=== PATIENT | male | born 1995 | race Caucasian/White ===

== ENCOUNTER 2017-04-17 20:46 | Emergency (ER) | payer BC ==
[~2017-04-17] VITALS: Ht 179.1 cm; Wt 76.1 kg
[2017-04-17 20:51] VITALS: Ht 179.1 cm; Wt 76.1 kg
[2017-04-17] MEDS ORDERED: KETOROLAC TROMETHAMINE 30 MG/ML VIAL IV STA (22:22)
[2017-04-17] MEDS ORDERED: ACETAMINOPHEN IV 100 ML IV ONE (22:30)
[2017-04-17] MEDS ORDERED: SODIUM CHLORIDE 0.9% 1000ML 1,000 ML IV ONE (22:30)
[2017-04-17 22:56] LABS: BASO % 0.1 %; BASO ABS # 0.01 K/uL (0-0.2); COMPLETE YES; EOS % 0.1 %; HEMATOCRIT 40.9 % (42-52); IG% 0.3 %; LYMPH % 12.3 %; LYMPH ABS # 1.42 K/uL (1.2-3.4); MEAN CELL VOLUME 84.3 fL (80-100); MEAN CORPUSCULAR HEMOGLOBIN 28.7 pg (25-34); MEAN PLATELET VOLUME 9.2 fL (7.4-10.4); NEUT % 76.2 %; PLATELET COUNT 302 K/uL (130-400); RED BLOOD COUNT 4.85 M/uL (4.7-6.1); WHITE BLOOD COUNT 11.54 K/uL (4.8-10.8)
[2017-04-17 23:01] LABS: URINE APPEARANCE CLEAR (CLEAR); URINE BILIRUBIN NEG (NEG); URINE COLOR YELLOW; URINE NITRITE NEG (NEG); UROBILINOGEN NEG (NEG); ZZUR CULT IF INDIC CLEAN CATCH NO
[2017-04-17 23:03] LABS: MANUAL MICROSCOPIC REQUIRED? NO; REVIEW REQ? NO
[2017-04-17 23:15] LABS: BUN/CREATININE RATIO 8.5 (10-20); CALCIUM 9.2 mg/dl (8.5-10.1); CREATININE 0.93 mg/dl (0.60-1.40); POTASSIUM 3.7 mmol/L (3.5-5.1)
[2017-04-17 23:33] VITALS: BP 127/63; PULSE 67; TEMP 36.8; O2SAT 96
--- NOTE | 2017-04-18 21:11 | EMERGENCY ROOM VISIT NOTE ---
History First contact with patient: 21:39 Chief Complaint: FEVER Stated Complaint: HEADACHE,SWOLLEN THROAT,ACHEY,FEVER,STOMACH PAIN History of Present Illness The patient is a 21 year old male who presents to the Emergency Room with complaints of fever and sore throat for the past 3-4 days. The patient has been using [id number] DayQuil which has helped his fever. He states that he is usually healthy, but has been overworked at the end of the semester, and feels like maybe wearing himself down. The patient has been able to eat and drink as normal. No chest pain, chest tightness, shortness of breath, or abdominal pain. He rates his current discomfort a 6/10. Review of Systems More than 10 systems were reviewed and otherwise negative with the exception of history of present illness. Past Medical/Surgical History No chronic medical disease Family History No pertinent family history Social History Smoking Status: Never Smoker Current/Historical Medications No Active Prescriptions or Reported Meds Physical Exam Vital Signs Date Time Temp Pulse Resp B/P (MAP) Pulse Ox O2 Delivery O2 Flow Rate FiO2 04/17/17 23:33 36.8 67 18 127/63 96 Room Air 04/17/17 22:47 90 18 133/74 96 Room Air 04/17/17 20:51 38.3 99 18 117/70 95 Room Air Physical Exam VITALS: Vitals are noted on the nurse's note and reviewed by myself. Vital signs with fever. GENERAL: Well-developed, well-nourished, white male, who appears ill but nontoxic. HEAD: Normocephalic atraumatic. EARS: External ear normal. External auditory canals clear, tympanic membranes pearly bah without erythema or effusion bilaterally. EYES: Pupils equal round and reactive to light and accommodation. Conjunctivae without injection, sclerae without icterus. Extraocular movements intact. NOSE: Patent, turbinates without inflammation or discharge. MOUTH: Mucous membranes moist. Tonsils are not enlarged. Pharynx without erythema, blood, or exudate. Uvula midline. Airway patent. NECK: Supple without nuchal rigidity. No lymphadenopathy. No thyromegaly. Cervical spine is nontender. HEART: Regular rate and rhythm without murmurs gallops or rubs. LUNGS: Clear to auscultation bilaterally without wheezes, rales or rhonchi. No retractions or accessory muscle use. ABDOMEN: Positive normal bowel sounds x 4. Soft, nontender, without masses or organomegaly. No guarding or rebound tenderness. MUSCULOSKELETAL: No muscle atrophy, erythema, or edema noted. Full range of motion without joint tenderness in all extremities. Medical Decision & Procedures Laboratory Results 04/17/17 22:40 Red Blood Count 4.85, Mean Corpuscular Volume 84.3, Mean Corpuscular Hemoglobin 28.7, Mean Corpuscular Hemoglobin Concent 34.0, Mean Platelet Volume 9.2, Neutrophils (%) (Auto) 76.2, Lymphocytes (%) (Auto) 12.3, Monocytes (%) (Auto) 11.0, Eosinophils (%) (Auto) 0.1, Basophils (%) (Auto) 0.1, Neutrophils # (Auto ) 8.79, Lymphocytes # (Auto) 1.42, Monocytes # (Auto) 1.27, Eosinophils # (Auto ) 0.01, Basophils # (Auto) 0.01 04/17/17 22:40 Test 04/17/17 22:40 04/17/17 22:49 White Blood Count 11.54 K/uL (4.8-10.8) Red Blood Count 4.85 M/uL (4.7-6.1) Hemoglobin 13.9 g/dL (14.0-18.0) Hematocrit 40.9 % (42-52) Mean Corpuscular Volume 84.3 fL (80-100) Mean Corpuscular Hemoglobin 28.7 pg (25-34) Mean Corpuscular Hemoglobin Concent 34.0 g/dl (32-36) Platelet Count 302 K/uL (130-400) Mean Platelet Volume 9.2 fL (7.4-10.4) Neutrophils (%) (Auto) 76.2 % Lymphocytes (%) (Auto) 12.3 % Monocytes (%) (Auto) 11.0 % Eosinophils (%) (Auto) 0.1 % Basophils (%) (Auto) 0.1 % Neutrophils # (Auto) 8.79 K/uL (1.4-6.5) Lymphocytes # (Auto) 1.42 K/uL (1.2-3.4) Monocytes # (Auto) 1.27 K/uL (0.11-0.59) Eosinophils # (Auto) 0.01 K/uL (0-0.5) Basophils # (Auto) 0.01 K/uL (0-0.2) RDW Standard Deviation 41.5 fL (36.4-46.3) RDW Coefficient of Variation 13.4 % (11.5-14.5) Immature Granulocyte % (Auto) 0.3 % Immature Granulocyte # (Auto) 0.04 K/uL (0.00-0.02) Anion Gap 6.0 mmol/L (3-11) Est Creatinine Clear Calc Drug Dose 131.8 ml/min Estimated GFR () 135.5 Estimated GFR (Non- 116.9 BUN/Creatinine Ratio 8.5 (10-20) Calcium Level 9.2 mg/dl (8.5-10.1) Total Bilirubin 0.3 mg/dl (0.2-1) Aspartate Amino Transf (AST/SGOT) 14 U/L (15-37) Alanine Aminotransferase (ALT/SGPT) 18 U/L (12-78) Alkaline Phosphatase 77 U/L (45-117) Total Protein 7.9 gm/dl (6.4-8.2) Albumin 3.9 gm/dl (3.4-5.0) Globulin 4.0 gm/dl (2.5-4.0) Albumin/Globulin Ratio 1.0 (0.9-2) Lipase 95 U/L (73-393) Monoscreen NEG (NEG) Urine Color YELLOW Urine Appearance CLEAR (CLEAR) Urine pH 6.0 (4.5-7.5) Urine Specific [place] 1.010 (1.000-1.030) Urine Protein NEG (NEG) Urine Glucose (UA) NEG (NEG) Urine Ketones NEG (NEG) Urine Occult Blood NEG (NEG) Urine Nitrite NEG (NEG) Urine Bilirubin NEG (NEG) Urine Urobilinogen NEG (NEG) Urine Leukocyte Esterase NEG (NEG) Medications Administered Medications (Trade) Dose Ordered Sig/Gary Route Start Time Stop Time Status Last Admin Dose Admin Acetaminophen 100 ml @ 400 mls/hr NOW ONCE IV 04/17/17 22:30 04/17/17 22:44 DC 04/17/17 22:45 400 MLS/HR Ketorolac Tromethamine (Toradol Inj) 30 mg NOW STAT IV 04/17/17 22:22 04/17/17 22:23 DC 04/17/17 22:44 30 MG Sodium Chloride 1,000 ml @ 999 mls/hr Q1H1M ONCE IV 04/17/17 22:30 04/17/17 23:30 DC 04/17/17 22:44 999 MLS/HR ED Course Physical exam and history were performed. Nursing notes, EMR, and Medication List were personally reviewed. Patient appears to have fever and sore throat symptoms for the past 3 or 4 days. Rapid strep was performed and was negative. IV access was established and labs were obtained. The patient was hydrated and medicated as above. The patient's blood work is as above and was reviewed. He does not have a significant elevated white blood cell count, gross anemia, bandemia, or significant electrolyte imbalance. His Monospot is negative. Remaining labs are fairly nondiagnostic. Overall the patient appears well for discharge home. His symptoms are likely viral in nature. He is outside of the window for Tamiflu and influenza testing was not performed. He will need to continue conservative care and was asked to follow with [facility] with any ongoing or persistent symptoms. The chart was completed utilizing [employer] Speech Voice Recognition Software. Grammatical errors, random word insertions, pronoun errors, and incomplete sentences are an occasional consequence of this system due to software limitations, ambient noise, and hardware issues. Any formal questions or concerns about the content, text, or information contained within the body of this dictation should be directly addressed to the provider for clarification. . Medical Decision Differential diagnosis: Etiologies such as viral syndrome, otitis, pharyngitis, pneumonia, influenza, meningitis, urinary tract infection, sepsis, bacteremia, as well as others were entertained. Impression Primary Impression: Influenza-like symptoms Departure Information Dispostion Home / Self-Care Condition GOOD Prescriptions No Active Prescriptions or Reported Meds Referrals [facility] (PCP) Forms HOME CARE DOCUMENTATION FORM, IMPORTANT VISIT INFORMATION Patient Instructions My [facility] Additional Instructions You were seen and evaluated today on an emergency basis only. This is not a substitute for, or an effort to provide, complete comprehensive medical care. It is not possible to recognize and treat all injuries or illnesses in a single emergency department visit. For this reason it is recommended that you followup with [facility] this week with any ongoing or persistent symptoms. For baseline pain relief you may alternate ibuprofen and acetaminophen every 4 hours for pain control. Take 600 mg ibuprofen (Advil) and then 4 hours later take 1000 mg acetaminophen (Tylenol). Do not take more than 3000 mg acetaminophen in a single day. Drink plenty of fluids and remain well hydrated You are welcome to return to the emergency department anytime with new, worsening, or concerning symptoms.
== END 2017-04-17 23:50 | disposition home or self-care (01) ==
LOC: C.EDB 20:48
DX: J11.1 Influenza due to unidentified influenza virus with other respiratory manifestations (principal)

== ENCOUNTER 2017-04-19 13:57 | Emergency (ER) | payer BC ==
[~2017-04-19] VITALS: Ht 177.8 cm; Wt 75.0 kg
[2017-04-19 14:07] VITALS: TEMP 39.3; Ht 177.8 cm; Wt 75.0 kg
[2017-04-19] MEDS ORDERED: ACETAMINOPHEN 500 MG TAB PO STA (14:30)
[2017-04-19] MEDS ORDERED: SODIUM CHLORIDE 0.9% 1000ML 1,000 ML IV ONE (14:30)
[2017-04-19] MEDS ORDERED: KETOROLAC TROMETHAMINE 30 MG/ML VIAL IV STA (14:30)
[2017-04-19] MEDS ORDERED: GI COCKTAIL PO STA (15:04)
[2017-04-19] MEDS ORDERED: ALUMINUM/MAGNESIUM SUSP 30 ML UDC ONE (15:09)
[2017-04-19 15:10] LABS: BASO % 0.1 %; BASO ABS # 0.01 K/uL (0-0.2); COMPLETE YES; EOS % 0.4 %; HEMATOCRIT 39.4 % (42-52); IG% 0.2 %; LYMPH % 13.5 %; MEAN CELL VOLUME 85.1 fL (80-100); MEAN CORPUSCULAR HEMOGLOBIN 29.4 pg (25-34); MEAN CORPUSCULAR HGB CONC 34.5 g/dl (32-36); MEAN PLATELET VOLUME 9.3 fL (7.4-10.4); MONO % 11.2 %; NEUT % 74.6 %; PLATELET COUNT 292 K/uL (130-400); RED BLOOD COUNT 4.63 M/uL (4.7-6.1); WHITE BLOOD COUNT 11.11 K/uL (4.8-10.8)
[2017-04-19] MEDS ORDERED: LIDOCAINE HCL 2% VISC SOLN 20 ML UDC ONE (15:10)
--- NOTE | 2017-04-19 15:10 | EMERGENCY ROOM VISIT NOTE ---
History First contact with patient: 14:16 Chief Complaint: ILLNESS Stated Complaint: FEVER,COUGH,HEADACHE,DEHYDRATION,NASUEA History of Present Illness The patient is a 21 year old male who presents to the Emergency Room with complaints of flulike symptoms have been going on for approximately 5 days. The patient reports a fever. He did not take his temperature at home. He is also had a headache, muscle aches and body aches. He has been trying to medicate with ibuprofen and DayQuil with minimal relief. His symptoms initially started out as a sore throat. The throat has gotten somewhat better. He now complains of a nonproductive cough. He denies any shortness of breath. He is having some pain in the center of his chest associated with coughing. The patient also complains of upper abdominal pain. He tried Pepcid this morning, which did help the pain. He denies any vomiting. No changes in bowel movements. Review of Systems 10 system review performed and negative unless noted in HPI or below Past Medical/Surgical History Otherwise healthy Social History Smoking Status: Never Smoker Alcohol Use: occasionally Occupation Status: [employer] student Current/Historical Medications Scheduled Pantoprazole (Protonix), 40 MG PO DAILY Physical Exam Vital Signs Date Time Temp Pulse Resp B/P (MAP) Pulse Ox O2 Delivery O2 Flow Rate FiO2 04/19/17 17:38 92 19 122/72 95 04/19/17 16:11 92 19 122/72 95 Room Air 04/19/17 15:00 113 04/19/17 14:56 108 30 139/79 99 Room Air 04/19/17 14:07 39.3 108 20 135/71 97 Room Air Physical Exam VITALS: Vitals are noted on the nurse's note and reviewed by myself. Vital signs stable. GENERAL: 21-year-old male, mildly ill in appearance SKIN: The skin was without rashes, erythema, edema, or bruising. HEAD: Normocephalic atraumatic. EARS: External auditory canals clear, tympanic membranes are slightly erythematous left greater than right. The left tympanic membrane is bulging. No effusion noted bilaterally. EYES: Pupils equal round and reactive to light and accommodation. Conjunctivae without injection, sclerae without icterus. Extraocular movements intact. MOUTH: Mucous membranes moist. Tonsils are slightly enlarged with white exudate on the left tonsil. No involvement of the soft palate. Uvula midline. Airway patent. Tongue does not deviate. NECK: Supple without nuchal rigidity. Lymphadenopathy noted in the anterior cervical chain right greater than left. Cervical spine is nontender. No JVD. HEART: Tachycardic, regular rhythm without murmurs gallops or rubs. LUNGS: Coarse breath sounds bilaterally. No crackles at the bases. No wheezing. No tachypnea. ABDOMEN: Positive bowel sounds x 4.Soft, mild tenderness to palpation in the left upper quadrant, without organomegaly. No guarding or rebound tenderness. MUSCULOSKELETAL: No muscle atrophy, erythema, or edema noted. Strength 5/5 throughout. NEURO: Patient was alert and oriented to person place and time. Normal sensation to touch. No focal neurological deficits. Medical Decision & Procedures ER Provider Diagnostic Interpretation: chest x-ray 2 views Patient Name: VICKIE GUILLEN Unit Number: [id number] Dictated: [id number] Transcribed: 04/19/17 1534 MS Printed Date/Time: [~ rep prt dt]/[~ rep prt tm] [~ rep ct labl] - [~ rep ct ivnm] [facility] Radiology Department [place], [place] [id number] Dictated: [id number] Transcribed: 04/19/17 1534 MS Printed Date/Time: [~ rep prt dt]/[~ rep prt tm] [~ rep ct labl] - [~ rep ct ivnm] IMPRESSION: Negative chest. The above report was generated using voice recognition software. It may contain grammatical, syntax or spelling errors. Electronically signed by: Austen Clifton M.D. 04/19/2017 3:34 PM Dictated Date/Time: 04/19/2017 3:34 PM The status of this report is Signed. Draft = Not yet reviewed or approved by Radiologist. Signed = Reviewed and approved by Radiologist. <AttendingPhy></AttendingPhy> <FamilyPhy>[facility]</FamilyPhy> <PrimaryPhy>[facility]</PrimaryPhy> <UnitNumber>[id number]</ UnitNumber> <VisitNumber>[id number]</VisitNumber> <PatientName>ABBI GUILLENEW Hattie</PatientName> <DateOfBirth>1995</DateOfBirth> <Location>[facility]</Location > <ServiceDate>04/19/17</ServiceDate> <MNE>ESINDI</MNE> <OrderingPhy>Jing Connor PA-C</OrderingPhy> <OrderingPhyMNE>f rep ord dr schwartz</OrderingPhyMNE> < DictatingPhyMNE>f rep dict dr schwartz</DictatingPhyMNE> <CCListMNE>f rep ct mne</ CCListMNE> <AdmittingPhyMNE>f pt admit dr schwartz</AdmittingPhyMNE> <AttendingPhyMNE >f pt attend dr schwartz</AttendingPhyMNE> <ConsultingPhyMNE>f pt consult dr schwartz</ConsultingPhyMNE> <FamilyPhyMNE>f pt fam dr schwartz</FamilyPhyMNE> <OtherPhyMNE>f pt other dr schwartz</OtherPhyMNE> < PrimaryPhyMNE>f pt prim care dr schwartz</PrimaryPhyMNE> <ReferringPhyMNE>f pt referring dr schwartz</ReferringPhyMNE> Laboratory Results 04/19/17 14:43 Red Blood Count 4.63, Mean Corpuscular Volume 85.1, Mean Corpuscular Hemoglobin 29.4, Mean Corpuscular Hemoglobin Concent 34.5, Mean Platelet Volume 9.3, Neutrophils (%) (Auto) 74.6, Lymphocytes (%) (Auto) 13.5, Monocytes (%) (Auto) 11.2, Eosinophils (%) (Auto) 0.4, Basophils (%) (Auto) 0.1, Neutrophils # (Auto ) 8.30, Lymphocytes # (Auto) 1.50, Monocytes # (Auto) 1.24, Eosinophils # (Auto ) 0.04, Basophils # (Auto) 0.01 04/19/17 14:43 Test 04/19/17 14:43 04/19/17 15:19 White Blood Count 11.11 K/uL (4.8-10.8) Red Blood Count 4.63 M/uL (4.7-6.1) Hemoglobin 13.6 g/dL (14.0-18.0) Hematocrit 39.4 % (42-52) Mean Corpuscular Volume 85.1 fL (80-100) Mean Corpuscular Hemoglobin 29.4 pg (25-34) Mean Corpuscular Hemoglobin Concent 34.5 g/dl (32-36) Platelet Count 292 K/uL (130-400) Mean Platelet Volume 9.3 fL (7.4-10.4) Neutrophils (%) (Auto) 74.6 % Lymphocytes (%) (Auto) 13.5 % Monocytes (%) (Auto) 11.2 % Eosinophils (%) (Auto) 0.4 % Basophils (%) (Auto) 0.1 % Neutrophils # (Auto) 8.30 K/uL (1.4-6.5) Lymphocytes # (Auto) 1.50 K/uL (1.2-3.4) Monocytes # (Auto) 1.24 K/uL (0.11-0.59) Eosinophils # (Auto) 0.04 K/uL (0-0.5) Basophils # (Auto) 0.01 K/uL (0-0.2) RDW Standard Deviation 42.0 fL (36.4-46.3) RDW Coefficient of Variation 13.5 % (11.5-14.5) Immature Granulocyte % (Auto) 0.2 % Immature Granulocyte # (Auto) 0.02 K/uL (0.00-0.02) Anion Gap 2.0 mmol/L (3-11) Est Creatinine Clear Calc Drug Dose 117.1 ml/min Estimated GFR () 119.8 Estimated GFR (Non- 103.4 BUN/Creatinine Ratio 5.7 (10-20) Calcium Level 9.1 mg/dl (8.5-10.1) Total Bilirubin 0.4 mg/dl (0.2-1) Aspartate Amino Transf (AST/SGOT) 29 U/L (15-37) Alanine Aminotransferase (ALT/SGPT) 25 U/L (12-78) Alkaline Phosphatase 79 U/L (45-117) Total Protein 8.3 gm/dl (6.4-8.2) Albumin 3.9 gm/dl (3.4-5.0) Globulin 4.4 gm/dl (2.5-4.0) Albumin/Globulin Ratio 0.9 (0.9-2) Lipase 110 U/L (73-393) Lyme Disease IgG Antibody NEG (NEG) Lyme Disease IgM Antibody NEG (NEG) Monoscreen NEG (NEG) Urine Color YELLOW Urine Appearance CLEAR (CLEAR) Urine pH 8.5 (4.5-7.5) Urine Specific [place] 1.006 (1.000-1.030) Urine Protein NEG (NEG) Urine Glucose (UA) NEG (NEG) Urine Ketones NEG (NEG) Urine Occult Blood NEG (NEG) Urine Nitrite NEG (NEG) Urine Bilirubin NEG (NEG) Urine Urobilinogen NEG (NEG) Urine Leukocyte Esterase NEG (NEG) Influenza Type A (RT-PCR) Neg for Influ A (NEG) Influenza Type B (RT-PCR) Neg for Influ B (NEG) Medications Administered Medications (Trade) Dose Ordered Sig/Gary Route Start Time Stop Time Status Last Admin Dose Admin Acetaminophen (Tylenol Tab) 1,000 mg NOW STAT PO 04/19/17 14:30 04/19/17 14:33 DC 04/19/17 14:30 1,000 MG Ketorolac Tromethamine (Toradol Inj) 30 mg NOW STAT IV 04/19/17 14:30 04/19/17 14:33 DC 04/19/17 14:30 30 MG Sodium Chloride 1,000 ml @ 999 mls/hr Q1H1M ONCE IV 04/19/17 14:30 04/19/17 15:30 DC 04/19/17 14:54 999 MLS/HR Ondansetron HCl (Zofran Inj) 4 mg Q2H PRN IV 04/19/17 15:15 04/19/17 18:02 DC 04/19/17 17:02 4 MG Al Hydroxide/Mg Hydroxide (Maalox Susp) 30 ml STK-MED ONCE .ROUTE 04/19/17 15:09 04/19/17 15:10 DC 04/19/17 15:17 30 ML Lidocaine HCl (Viscous Lidocaine 2% Soln) 20 ml STK-MED ONCE .ROUTE 04/19/17 15:10 04/19/17 15:11 DC 04/19/17 15:18 20 ML Pantoprazole Sodium (Protonix Tab) 40 mg NOW STAT PO 04/19/17 16:43 04/19/17 16:44 DC 04/19/17 17:02 40 MG Ondansetron HCl (ZOFRAN ODT 4MG Home Pack) 1 homepack Check I'm HereK-MED ONCE .ROUTE 04/19/17 17:27 04/19/17 17:28 DC 04/19/17 17:30 1 [facility] ED Course Patient was seen and examined Vital signs including blood pressure were reviewed medications list was verified with patient Labs were obtained, and a saline lock was established The patient was medicated with Toradol, Tylenol and Zofran. He was hydrated with normal saline. He was also given a GI cocktail. Upon reevaluation, the patient was feeling better. We discussed the results of his workup. I also spoke with the patient's mother over the phone. She voiced understanding , and seemed happy with the workup The case was also discussed with my supervising physician The patient was given 1 dose of pantoprazole prior to discharge. He was also given a home pack of Zofran. I reviewed discharge instructions the patient. They voiced understanding and had no further questions. Medical Decision Differential diagnosis: Bronchitis, pneumonia, strep pharyngitis, viral pharyngitis, influenza, other viral syndrome, mononucleosis, meningitis, gastritis, duodenal ulcer, pancreatitis, pulmonary embolus, cholecystitis This patient is a 21-year-old male that returns to the emergency department with complaints of continued fever, and now cough and epigastric abdominal pain. On exam, he did appear ill with a fever. He had coarse breath sounds. He did not have any signs of nuchal rigidity on exam. I did not suspect meningitis. His past workup was reviewed from 2 days ago. I repeated blood work. His mono screen is negative. There is mild leukocytosis at 11,000, which is essentially unchanged. His strep test was reviewed, and negative. Chest x-ray did not show any signs of pneumonia. Because of the epigastric pain , I ordered a lipase and liver functions. No abnormalities were noted. His pain is possibly due to gastritis as Pepcid seemed to help earlier today. He also had some relief with a GI cocktail. The patient has been taking ibuprofen for symptoms, which could complaint is epigastric pain. He was given a prescription for pantoprazole. The patient has a follow-up appointment scheduled with his primary care physician in 2 days. I believe that he is stable to be discharged as long as he follows up as scheduled. He was instructed to increase his fluids and take Tylenol for fever. He will avoid ibuprofen if possible. He agrees to return to the emergency department immediately with any new, worsening or concerning symptoms. This chart was completed in part utilizing [employer] Voice Recognition software. Attempts were made to minimize the grammatical errors, random word insertions, pronoun errors and incomplete sentences. Any formal questions or concerns about the content, text or information contained within the body of this dictation should be directly addressed to the provider for clarification. Impression Primary Impression: Influenza-like symptoms Additional Impression: Gastritis Departure Information Dispostion Home / Self-Care Condition FAIR Prescriptions Pantoprazole (PROTONIX) 40 Mg Tab 40 MG PO DAILY, #14 TAB Prov: Jing Connor PA-C 04/19/17 Referrals [facility] (PCP) Patient Instructions My [facility] Additional Instructions You were evaluated in the emergency department for fever, headache and stomach problems. This is unfortunately likely a viral illness, and will need to run its course. It is very important to stay well hydrated. I would follow a bland diet eating small amounts more frequently. Foods that are acidic, spicy, caffeine, tobacco and alcohol should be avoided Please also avoid ibuprofen if possible Tylenol 1000 mg every 8 hours as needed for fever, headache or pain. Do not exceed 3000 mg in a 24-hour period Please follow-up with your primary care physician in 2 days as scheduled Please do not hesitate to return to the emergency department with any new, worsening or concerning symptoms; especially, increased fever, pain, vomiting or severe headache Problem Qualifiers
[2017-04-19] MEDS ORDERED: ONDANSETRON INJ 2 MG/ML 2 ML VIAL IV PRN (15:15)
[2017-04-19 15:30] LABS: BUN/CREATININE RATIO 5.7 (10-20); CALCIUM 9.1 mg/dl (8.5-10.1); CREATININE 1.03 mg/dl (0.60-1.40); POTASSIUM 3.8 mmol/L (3.5-5.1)
[2017-04-19 15:32] LABS: ALB/GLOB RATIO 0.9 (0.9-2)
[2017-04-19 15:34] LABS: MANUAL MICROSCOPIC REQUIRED? NO; REVIEW REQ? NO; URINE APPEARANCE CLEAR (CLEAR); URINE BILIRUBIN NEG (NEG); URINE COLOR YELLOW; URINE NITRITE NEG (NEG); URINE PH 8.5 (4.5-7.5); URINE SPECIFIC GRAVITY 1.006 (1.000-1.030); UROBILINOGEN NEG (NEG)
--- NOTE | 2017-04-19 15:35 | DIAGNOSTIC IMAGING REPORT ---
CHEST 2 VIEWS ROUTINE CLINICAL HISTORY: cough fever dyspnea COMPARISON STUDY: No previous studies for comparison. FINDINGS: The bones soft tissues and hemidiaphragms are normal. The cardiomediastinal silhouette is normal. The lungs are clear. The pulmonary vasculature is normal. IMPRESSION: Negative chest. The above report was generated using voice recognition software. It may contain grammatical, syntax or spelling errors. Electronically signed by: Austen Clifton M.D. 04/19/2017 3:34 PM Dictated Date/Time: 04/19/2017 3:34 PM
[2017-04-19 15:59] LABS: LYME DISEASE AB IGG NEG (NEG); LYME DISEASE AB IGM NEG (NEG)
[2017-04-19 16:17] LABS: INFLUENZA A PCR Neg for Influ A (NEG); INFLUENZA B PCR Neg for Influ B (NEG)
[2017-04-19] MEDS ORDERED: PANTOprazole SOD 40 MG TAB PO STA (16:43)
[2017-04-19] MEDS ORDERED: ONDANSETRON HOME PACK 4MG OD TAB ONE (17:27)
[2017-04-19] MEDS ORDERED: PANT1TAB48 PO (17:29)
[2017-04-19 17:38] VITALS: BP 122/72; PULSE 92; O2SAT 95
== END 2017-04-19 17:38 | disposition home or self-care (01) ==
LOC: C.EDB 13:58 → C.EDA 17:38
DX: J11.1 Influenza due to unidentified influenza virus with other respiratory manifestations (principal); K29.70 Gastritis, unspecified, without bleeding; Z79.899 Other long term (current) drug therapy